=== PATIENT | female | born 1945 | race Caucasian/White ===

== ENCOUNTER 2018-10-17 10:05 | Emergency (ER) | payer MEDICARE, OTHER ==
[2018-10-17] MEDS ORDERED: ASPIRIN 81 MG CHEW TAB PO ONE (10:43)
--- NOTE | 2018-10-17 10:50 | ED Physician Documentation ---
General Adult - HISTORIAN Historian: patient - HPI Stated Complaint: Hypertension Chief Complaint: General Adult Additional Information: Intro self as FAMILY MEDICINE PHYSICIAN. pt presents to the ED via POV with daughter c/o high blood pressure with dizziness/RANDHAWA SBP 170-180 at home over the last several days. pt reports it is high upon waking in the morning and will decrease through the day. pt reports she usually has one cup of coffee in the morning although she has not had one this am. she denies decongestant use or other stimulant use. Presently pt is 151/90 HR 82 asymptomatic. pt denies current chest pain, dyspnea, syncope/near syncope, headache, dizziness, visual disturbances, n/v/d, fever/chills, rash, sick contacts, dysuria/burning/frequency, trauma. melena or hematochezia, bleeding or easy bruising, change in bowel or bladder function. anxiety or depression. ROS Negative unless otherwise specified. - ROS CONST: no problems EYES/ENT: denies: sore throat, nasal drainage, nasal congestion CVS/RESP: denies: chest pain, shortness of breath GI/: denies: abdominal pain, problems urinating, vomiting, nausea, diarrhea, black stools MS/SKIN/LYMPH: none NEURO/PSYCH: headache, dizziness. denies: fainting, tingling, numbness, difficulty walking, difficulty with speech, anxiety, depression - PAST HX Past History: none Surgeries/Procedures: cholecystectomy, other (Left ankle ) Allergies/Adverse Reactions: Allergies Allergy/AdvReac Type Severity Reaction Status Date / Time No Known Allergies Allergy Verified 10/17/18 10:39 Home Medications: Ambulatory Orders Medication Instructions Recorded NK 10/17/18 - SOCIAL HX Smoking History: non-smoker Alcohol Use: none Drug Use: none - FAMILY HX Family History: No - VITAL SIGNS Vital Signs: Vital Signs Temp Pulse Resp BP Pulse Ox 98.2 F 106 H 17 195/92 94 10/17/18 10:18 10/17/18 10:18 10/17/18 10:18 10/17/18 10:18 10/17/18 10:18 - REVIEWED ASSESSMENTS Nursing Assessment Reviewed: Yes Vitals Reviewed: Yes Progress - Progress Progress: Report Submission Date: Oct 17, 2018 11:25:31 AM PRODUCTION LINE OPERATOR Patient Study Name: KENNETH SANTIAGO Date: Oct 17, 2018 10:54:24 AM PRODUCTION LINE OPERATOR Modality Type: DX Gender: F Description: CHEST : 47 Institution: [facility] Physician: MONICA MARTINEZ Examination: Portable chest History: Evaluate lungs Comparison exam: None provided. Findings: Single view of the chest demonstrates a normal cardiac and mediastinal silhouette. Mildly tortuous aorta. Lung barry without focal infiltrate. No blunting of the costophrenic margins. Osseous structures are appropriate for age. Impression: No acute pulmonary process. Electronically signed on Oct 17, 2018 11:25:31 AM PRODUCTION LINE OPERATOR by: Aniceto Ortiz [id number] pt denies symptoms at rest. During orthostatic VS. pt became unsteady upon standing, but quickly resolved. awaiting CMP. POC blood glucose 280. - EKG/XRAY/CT EKG: NSR, no ST T wave changes (no st elevation/depression. normal intervals/axis/qrs. interp by me. ) Comments: Rate [address] depression or elevation. T wave inversion lead III. ED Results Lab/Radiology - Radiology Radiology Impressions: Report Submission Date: Oct 17, 2018 1:29:26 PM PRODUCTION LINE OPERATOR Patient Study Name: KENNETH SANTIAGO Date: Oct 17, 2018 12:33:25 PM PRODUCTION LINE OPERATOR Modality Type: CT\SR Gender: F Description: CT BRAIN W/O CONTRAST : 47 Institution: [facility] Physician: MONICA MARTINEZ HEAD CT WITHOUT CONTRAST HISTORY: Dizziness COMPARISON: None TECHNIQUE: Axial images were obtained from the skullbase to the vertex without IV contrast. FINDING: The ventricular system is normal in size and configuration. There is normal parenchymal attenuation. There is no positive mass effect or intra/extra-axial hemorrhage. Visualized paranasal sinuses and mastoid air cells are clear. The calvarium is intact. IMPRESSION: NO INTRACRANIAL ABNORMALITY. Electronically signed on Oct 17, 2018 1:29:26 PM PRODUCTION LINE OPERATOR by: Ina Barbosa - Orders Orders: ED Orders Category Date Time Status Continuous EKG monitoring Q30M Care 10/17/18 10:43 Active Continuous Pulse Oximetry Q30M Care 10/17/18 10:[address] IV Lock 1T Care 10/17/18 10:43 Active CHEST 1VIEW [RAD] Stat Exams 10/17/18 Ordered CBC/PLATELET/DIFF Stat Lab 10/17/18 10:43 Ordered CMP Stat Lab 10/17/18 10:43 Ordered TROPONIN I (cTnI) Stat Lab 10/17/18 10:43 Ordered UA W MICRO [UA W/MICRO IF INDICATED] Stat Lab 10/17/18 10:46 Ordered Aspirin Med 10/17/18 10:43 Discontinued 324 mg PO NOW ONE EKG WITH COMPARISON Stat Ther 10/17/18 10:43 Ordered General Adult Physical Exam - PHYSICAL EXAM GENERAL APPEARANCE: no distress EENT: eye inspection normal, ENT inspection normal, pharynx normal, no signs of dehydration, MARIUM, no nystagmus, TM's nml NECK: normal inspection, thyroid normal. No: lymphadenopathy RESPIRATORY: no resp distress, chest non-tender, breath sounds normal CVS: reg rate & rhythm, heart sounds normal, equal pulses, no murmur, no gallop, PMI nml, no JVD, no friction rub, 24 ABDOMEN: soft, no organomegaly, normal bowel sounds, no abdominal bruit, no distension BACK: normal inspection, no CVA tenderness SKIN: normal color, warm/dry, NR, INT, PAL, DR EXTREMITIES: non-tender, normal range of motion, no evidence of injury, no edema, J, FAMILY MEDICINE PHYSICIAN NEURO: oriented X3, CN's nml as tested (NIH 0. ), motor nml, sensation nml, mood/affect nml, cognition normal Discharge Clincal Impression: Orthostasis, Dehydration, Hyperglycemia, unspecified Hypertension Qualifiers: Hypertension type: essential hypertension Qualified Code(s): I10 - Essential (primary) hypertension Referrals: Primary Doctor,No [Primary Care Provider] - 2 Days (Dr Brice Oct 23 945) Additional Instructions: Follow up with primary care in one week for further evaluation. An appointment has been made with Dr Brice on MondayOct 23 at 0945 at [facility] next to the hospital. please come fasting for labs. You may drink water morning of labs. [phone] Log your blood pressures twice a day at different times at rest on the sheet provided. bring to your primary care. increase fluids to at least 64 oz per day. decrease sugar intake. seek medical care immediately if increased weakness, dizziness, difficulty breathing, feeling faint or fainting, increased rash, chest pain, shortness of breath, or fever not controlled by tylenol/motrin or any concern. -UNDERSTAND THAT THIS IS AN EMERGENCY EVALUATION FOR YOUR COMPLAINT TODAY AND BY NATURE IS LIMITED AND NOT A SUBSTITUTE FOR ONGOING MEDICAL CARE AND THAT EVEN THOUGH TEST RESULTS AND TREATMENT PLAN WERE EXPLAINED THERE MAY BE A NEED FOR ADDITIONAL TESTING TO FULLY DETERMINE THE EXTENT OF YOUR ILLNESS/INJURY/OR CONCERN SO YOU SHOULD CONTACT AND OR ESTABLISH WITH A PRIMARY CARE PROVIDER (OR REFERRAL DOCTOR IF APPLICABLE) FOR AN APPOINTMENT SOON POSSIBLE. Condition: Good Disposition: 01 HOME, SELF-CARE Decision to Admit: NO Date of Decison to Admit: 10/17/18 Decision Time: 14:41
[2018-10-17 11:08] LABS: BASOPHILS % 0.4 (0.0-1.5); MEAN CORPUSCULAR HEMOGLOBIN 29.9 pg (28.0-34.0); MONOCYTES % 8.3 % (0.0-11.0); NEUTROPHILS # 5.6 # k/uL (1.4-7.7)
[2018-10-17] MEDS ORDERED: 0.9 % SODIUM CHLORIDE 1,000 ML IV ONE (13:25)
[2018-10-17 14:21] LABS: TOTAL PROTEIN 7.5 g/dL (6.0-8.5)
[2018-10-17 14:50] VITALS: BP 158/83
--- NOTE | 2018-10-18 04:52 | Diagnostic Imaging Report ---
MONICA MARTINEZ [facility] [address] [facility] [address] [address] Report Submission Date: Oct 17, 2018 11:25:31 AM AUTOMATIC RIVETING MACHINE OPERATOR Patient Study Name: KENNETH SANTIAGO Date: Oct 17, 2018 10:54:24 AM AUTOMATIC RIVETING MACHINE OPERATOR Modality Type: DX Gender: F Description: CHEST : 47 Institution: [facility] Physician: MONICA MARTINEZ Examination: Portable chest History: Evaluate lungs Comparison exam: None provided. Findings: Single view of the chest demonstrates a normal cardiac and mediastinal silhouette. Mildly tortuous aorta. Lung barry without focal infiltrate. No blunting of the costophrenic margins. Osseous structures are appropriate for age. Impression: No acute pulmonary process. Electronically signed on Oct 17, 2018 11:25:31 AM AUTOMATIC RIVETING MACHINE OPERATOR by: Aniceto DIA
--- NOTE | 2018-10-18 06:01 | Diagnostic Imaging Report ---
MONICA MARTINEZ [facility] [address] [facility] [address] [place] [address]. [id number] Report Submission Date: Oct 17, 2018 1:29:26 PM WRAPPER REWINDER Patient Study Name: KENNETH SANTIAGO Date: Oct 17, 2018 12:33:25 PM WRAPPER REWINDER Modality Type: CT\SR Gender: F Description: CT BRAIN W/O CONTRAST : 47 Institution: [facility] Physician: MONICA MARTINEZ HEAD CT WITHOUT CONTRAST HISTORY: Dizziness COMPARISON: None TECHNIQUE: Axial images were obtained from the skullbase to the vertex without IV contrast. FINDING: The ventricular system is normal in size and configuration. There is normal parenchymal attenuation. There is no positive mass effect or intra/extra-axial hemorrhage. Visualized paranasal sinuses and mastoid air cells are clear. The calvarium is intact. IMPRESSION: NO INTRACRANIAL ABNORMALITY. Electronically signed on Oct 17, 2018 1:29:26 PM WRAPPER REWINDER by: Ina DIA
== END 2018-10-17 14:48 | disposition home or self-care (01) ==
LOC: ED 10:05 → SUPCPDRO 10:05 → ED 14:48
DX: I10 Essential (primary) hypertension (principal); I95.1 Orthostatic hypotension; E86.0 Dehydration; R73.9 Hyperglycemia, unspecified
CPT/HCPCS: 36415; 70450; 71045; 80053; 84484; 85025; 93005; 96365; 99284; 99285; J7030; S1016

== ENCOUNTER 2018-10-23 10:50 | Outpatient (CLI) | payer MEDICARE, OTHER | END 2018-10-23 11:30 | LOC: LAB 10:50 | PROVIDERS: ATTEND Family Medicine | DX: R73.9 Hyperglycemia, unspecified (principal) | CPT/HCPCS: 36415; 83036 ==

== ENCOUNTER 2018-12-18 21:19 | Emergency (ER) | payer MEDICARE, OTHER ==
[2018-12-18] MEDS ORDERED: ASPIRIN 81 MG CHEW TAB PO ONE (21:24)
[2018-12-18 21:53] LABS: eGFR (Non-African) > 60
[2018-12-18 22:24] LABS: MEAN CORPUSCULAR HEMOGLOBIN 30.3 pg (28.0-34.0)
[2018-12-18 22:25] LABS: EOSINOPHILS % 0.9 % (0.0-6.8); NEUTROPHILS # 6.6 # k/uL (1.4-7.7)
--- NOTE | 2018-12-18 23:08 | ED Physician Documentation ---
Chest Pain - HISTORIAN Historian: patient - HPI Stated Complaint: neck pain, chest fullness Chief Complaint: Chest Pain Onset: other (since 6 pm ) Timing: sudden onset Duration: constant Last known Well Date: 12/18/18 Last Known Well Time: 18:00 Context: rest Severity: mild Quality: aching Chest Pain Radiation: jaw (both ) Chest Pain Signs/Symptoms: denies: nausea, vomiting Worsened By: nothing Relieved By: nothing - ROS CONST: none MS/LYMPH: none GI/: none SKIN/ENDO: none - PAST HX NC risk factors: hypertension, diabetes Type 2 TAD/AAA risk factors: none Neuro deficit: none GI disease: none Lung disease: none Immunizations: UTD Allergies/Adverse Reactions: Allergies Allergy/AdvReac Type Severity Reaction Status Date / Time No Known Allergies Allergy Verified 12/18/18 23:39 - SOCIAL HX Smoking History: non-smoker Alcohol Use: none Drug Use: none - FAMILY HX Family HX: none - VITAL SIGNS Vital Signs: Vital Signs Temp Pulse Resp BP Pulse Ox 84 158/83 94 12/18/18 23:00 10/17/18 14:48 12/18/18 23:00 - REVIEWED ASSESSMENTS Nursing Assessment Reviewed: Yes Vitals Reviewed: Yes Progress - Progress Progress: 2215: discussed case with Dr Brice and discussed with [facility] flight/transport nurse Dr Joe is agreeable to pt staying for follow up lab or transferDG 2229: Discussed and pt and daughter. She is saying now possibly having mild aching in chest that is continuing. She does want to be transferred to [facility] DG 2240: discussed with Germán at [facility] and Dr Joe is agreeable to transfer ED Results Lab/Radiology - Lab Results Lab Results: Lab Results 12/18/18 12/18/18 12/18/18 21:28 21:28 21:28 WBC 11.90 K/ul K/ul (4.00-12.00) RBC 4.68 M/ul M/ul (3.90-5.20) Hgb 14.2 g/dL g/dL (12.0-16.0) Hct 42.5 % % (34.5-46.5) MCV 91.0 fl fl (80.0-100.0) MCH 30.3 pg pg (28.0-34.0) MCHC 33.4 g/dL g/dL (30.0-36.0) RDW 14.9 % H % (11.3-14.3) Plt Count 289 K/mm3 K/mm3 (130-400) Neut % (Auto) 55.0 % % (39.0-79.0) Lymph % (Auto) 36.1 % % (16.0-50.0) [place] % (Auto) 7.0 % % (0.0-11.0) Eos % (Auto) 0.9 % % (0.0-6.8) Baso % (Auto) 1.0 (0.0-1.5) Neut # (Auto) 6.6 # k/uL # k/uL (1.4-7.7) Lymph # (Auto) 4.3 # k/uL H # k/uL (0.6-4.0) [place] # (Auto) 0.8 # k/uL # k/uL (0.0-0.9) Eos # (Auto) 0.1 # k/uL # k/uL (0.0-0.6) Baso # (Auto) 0.1 # k/uL # k/uL (0.0-0.5) Sodium 140 mmol/L mmol/L (136-145) Potassium 3.9 mmol/L mmol/L (3.5-5.1) Chloride 99 mmol/L mmol/L (98-107) Carbon Dioxide 26 mmol/L mmol/L (22-30) BUN 20 mg/dL H mg/dL (7-17) Creatinine 1.00 mg/dL mg/dL (0.52-1.04) Estimated Creat Clear 72 Est GFR ( Amer) > 60 (60 - ) Est GFR (Non-Af Amer) > 60 (60 - ) Glucose 108 mg/dL H mg/dL (74-106) Calcium 9.5 mg/dL mg/dL (8.4-10.2) Total Bilirubin 0.4 mg/dL mg/dL (0.2-1.3) AST 35 U/L U/L (15-46) ALT 29 U/L U/L (13-69) Alkaline Phosphatase 57 U/L U/L (38-126) Troponin I 0.14 ng/mL H ng/mL (0.03-0.06) NT-Pro-B Natriuret Pep 68.6 pg/mL pg/mL (15.0-125.0) Total Protein 7.9 g/dL g/dL (6.3-8.2) Albumin 5.0 g/dL g/dL (3.5-5.0) - Orders Orders: ED Orders Category Date Time Status Continuous EKG monitoring Q30M Care 12/18/18 21:24 Active Continuous Pulse Oximetry Q30M Care 12/18/18 21:[address] IV Lock 1T Care 12/18/18 21:24 Active CHEST 1VIEW [RAD] Stat Exams 12/18/18 Ordered BNP [NT-proBNP] Stat Lab 12/18/18 21:28 Completed CBC/PLATELET/DIFF Routine Lab 12/18/18 21:28 Completed CMP Routine Lab 12/18/18 21:28 Completed TROPONIN I (cTnI) Stat Lab 12/18/18 21:28 Completed Aspirin Med 12/18/18 21:24 Discontinued 324 mg PO NOW ONE Oxygen Daily Oxygen 12/18/18 21:30 Ordered EKG WITH COMPARISON Stat Ther 12/18/18 21:24 Ordered Chest Pain Physical Exam - EXAM General Appearance: no acute distress, alert EENT: eye inspection normal, no signs of dehydration Neck: nml inspection Respiratory: no resp. distress, chest non-tender, nml breath sounds CVS: reg. rate & rhythm, no murmur Abdomen: soft, normal bowel sounds, no distension Skin: warm/dry, normal color Extremities: non-tender, normal range of motion, no evidence of injury, no edema Neuro: oriented X3 Discharge Clincal Impression: Elevated troponin I level Referrals: Nathalia Brice MD [Primary Care Provider] - 2 Days Condition: Serious Disposition: XFER SHT-TRM HOSP Decision to Admit: NO Date of Decison to Admit: 12/18/18 Decision Time: 23:00
[2018-12-18 23:55] VITALS: BP 150/85
--- NOTE | 2018-12-19 06:34 | Diagnostic Imaging Report ---
YUDI VELA [facility] [address] [facility] [place] [facility] [address] [place], [place]. [address] Report Submission Date: Dec 18, 2018 10:04:04 PM GROUP FITNESS DEPARTMENT HEAD Patient Study Name: KENNETH SANTIAGO Date: Dec 18, 2018 9:40:05 PM GROUP FITNESS DEPARTMENT HEAD Modality Type: DX Gender: F Description: CHEST 1VIEW : 47 Institution: [facility] Physician: YUDI VELA Portable chest CLINICAL HISTORY: Chest pain starting today. FINDINGS: Examination of the chest in single portable AP view with comparison to examination of 10/17/2018 demonstrates lungs to be clear. Cardiovascular and mediastinal silhouettes are stable. The aorta is atherosclerotic. Monitor leads superimpose the chest. IMPRESSION: No significant change. Aortic atherosclerosis. No active disease. Electronically signed on Dec 18, 2018 10:04:04 PM GROUP FITNESS DEPARTMENT HEAD by: Chalino DIA
== END 2018-12-18 23:55 | disposition short-term general hospital (02) ==
LOC: ED 21:19
DX: R79.89 Other specified abnormal findings of blood chemistry (principal)
CPT/HCPCS: 36415; 71045; 80053; 83880; 84484; 85025; 99285; S1016

== ENCOUNTER 2019-07-10 09:02 | Outpatient (CLI) | payer MEDICARE, OTHER | END 2019-07-10 09:04 | LOC: LAB 09:02 | PROVIDERS: ATTEND Family Medicine | DX: E11.9 Type 2 diabetes mellitus without complications (principal) | CPT/HCPCS: 36415; 83036 ==